=== PATIENT | female | born 1955 | race Caucasian/White ===

== ENCOUNTER 2017-05-25 10:22 | Day surgery (SDC) | payer OTHER ==
[2017-05-24 09:42] VITALS: BMI 39.3
[2017-05-25] MEDS ORDERED: LIDOCAINE HCL/PF 2% SDV 5ML VIAL ONE (10:54)
[2017-05-25] MEDS ORDERED: PROPOFOL 20 ML ONE (10:54)
[2017-05-25 11:26] VITALS: TEMP 97.9
[2017-05-25 13:11] VITALS: BP 120/64; PULSE 78
== END 2017-05-25 13:15 | disposition home or self-care (01) ==
LOC: JASU-ENDO 10:22
PROVIDERS: ATTEND Internal Medicine Gastroenterology
PROC: 0DJ08ZZ Inspection of Upper Intestinal Tract, Via Natural or Artificial Opening Endoscopic (ICD-10-PCS; principal; 2017-05-25 10:15)
DX: Z13.810 Encounter for screening for upper gastrointestinal disorder (principal); K31.819 Angiodysplasia of stomach and duodenum without bleeding; I85.00 Esophageal varices without bleeding; K31.7 Polyp of stomach and duodenum
CPT/HCPCS: 82962

== ENCOUNTER 2018-11-22 09:25 | Day surgery (SDC) | payer MEDICARE, OTHER ==
[2018-11-22 10:00] VITALS: BMI 37.2
[2018-11-22 10:27] VITALS: TEMP 97.9
[2018-11-22 10:52] VITALS: PULSE 83
[2018-11-22 14:18] VITALS: BP 110/58
== END 2018-11-22 11:25 | disposition home or self-care (01) ==
LOC: JASU-ENDO 09:25
PROVIDERS: ATTEND Internal Medicine Gastroenterology
PROC: 0DJ08ZZ Inspection of Upper Intestinal Tract, Via Natural or Artificial Opening Endoscopic (ICD-10-PCS; principal; 2018-11-22 09:30)
DX: Z13.89 Encounter for screening for other disorder (principal); I85.00 Esophageal varices without bleeding; E11.9 Type 2 diabetes mellitus without complications
CPT/HCPCS: 82962

== ENCOUNTER 2019-02-15 13:17 | Day surgery (SDC) | payer MEDICARE, OTHER ==
[2019-02-14 16:14] VITALS: BMI 37.5
[2019-02-15 15:07] VITALS: TEMP 98.2
[2019-02-15 16:05] VITALS: BP 109/50; PULSE 68
--- NOTE | 2019-02-17 18:46 | PATH ---
Surgical Pathology Report Patient Name: KOLTON RICKETTS [facility]. Rec. #: [id number] /Age/Gender: 1955 (Age: 63) / F Account: [id number] Location: [facility]-ENDOSCOPY Taken: 02/15/2019 Received: 02/16/2019 Reported: 02/17/2019 Physicians: German Moise M.D. Specimen(s) Received POLYP RIGHT COLON Clinical History Screening Postoperative diagnosis: Polyp Final Diagnosis COLON, RIGHT, POLYP, POLYPECTOMY: INFLAMMATORY POLYP. Electronically Signed Yoly Montague M.D. Gross Description Received in formalin, labeled "polyp right colon" is a [place], irregular portion of soft tissue measuring 0.7 x 0.5 cm. in greatest dimension. The base of the specimen is inked in blue. The specimen is bisected and entirely submitted in one cassette. MLSZ/02/16/2019 sanml/02/16/2019
== END 2019-02-15 16:03 | disposition home or self-care (01) ==
LOC: JASU-ENDO 13:17
PROVIDERS: ATTEND Internal Medicine Gastroenterology
PROC: 0DBK8ZX Excision of Ascending Colon, Via Natural or Artificial Opening Endoscopic, Diagnostic (ICD-10-PCS; principal; 2019-02-15 14:00)
DX: K62.5 Hemorrhage of anus and rectum (principal); D12.2 Benign neoplasm of ascending colon; K64.8 Other hemorrhoids
CPT/HCPCS: 82962; 88305-TC

== ENCOUNTER 2023-08-10 11:01 | Emergency (ER) | payer MEDICARE, OTHER ==
[2023-08-10 11:10] VITALS: BMI 38.4
[2023-08-10] MEDS: ACETAMINOPHEN 1000 MG/100 ML BAG IVPB ONE (13:07)
[2023-08-10] MEDS ORDERED: ACETAMINOPHEN 500 MG TABLET (FP) ONE (14:06)
[2023-08-10] MEDS: ACETAMINOPHEN 500 MG TABLET (FP) PO ONE (14:08)
[2023-08-10 15:13] VITALS: BP 155/56; PULSE 71; RESP 20; TEMP 98.9
== END 2023-08-10 15:15 | disposition home or self-care (01) ==
LOC: JER 11:01
DX: M79.10 Myalgia, unspecified site (principal); R51.9 Headache, unspecified; M54.50 Low back pain, unspecified; H57.13 Ocular pain, bilateral; M25.522 Pain in left elbow; M25.512 Pain in left shoulder; M79.604 Pain in right leg; M79.605 Pain in left leg; Y04.8XXA Assault by other bodily force, initial encounter
CPT/HCPCS: 70450-TC; 70486-TC; 71045-TC-FY; 72125-TC; 72128-TC; 72131-TC; 72170-TC-FY; 73030-TC-LT-FY; 73070-TC-LT-FY; 93005; 93010; 99285-25

== ENCOUNTER 2024-05-31 11:04 | Emergency (ER) | payer MEDICARE, OTHER ==
[2024-05-31 11:16] VITALS: BP 140/68; PULSE 66; RESP 16; TEMP 98.6; BMI 31.4
[2024-05-31 13:03] LABS: BASO % 0.9 % (0-2.0); EOS % 2.4 % (0-4.5); HEMATOCRIT 33.4 % (32.4-45.2); HEMOGLOBIN 10.7 GM/dL (10.7-15.3); LYMPH % 27.3 % (8-40); MCHC 32.1 g/dl (32.0-36.0); MEAN CELL VOLUME 83.9 fl (80-96); MEAN PLT VOLUME 8.1 fl (7.5-11.1); MONO % 6.5 % (3.8-10.2); NEUT % 62.9 % (42.8-82.8); PLATELET COUNT 37 10^3/uL (134-434); RBC 3.98 M/mm3 (3.60-5.2); WHITE BLOOD COUNT 2.2 K/mm3 (4.0-10.0)
[2024-05-31 13:09] LABS: INR 1.25 (0.83-1.09)
[2024-05-31 13:23] LABS: BLOOD UREA NITROGEN 13.9 mg/dL (7-18); CALCIUM 10.1 mg/dL (8.5-10.1)
[2024-05-31 13:28] LABS: BILIRUBIN,TOTAL 1.6 mg/dL (0.2-1); TOT PROT 5.9 g/dl (6.4-8.2)
[2024-05-31] MEDS ORDERED: MINERAL OIL/PET HY-PHL TOPICAL OINTMENT 454 GM JAR TP ONE (13:51)
== END 2024-05-31 14:41 | disposition home or self-care (01) ==
LOC: JER 11:04
DX: N95.2 Postmenopausal atrophic vaginitis (principal); R30.0 Dysuria
CPT/HCPCS: 36415; 80053; 82962; 85025; 85610; 86850; 86900; 86901; 99283-25